=== PATIENT | male | born 1965 | race Caucasian/White ===

== ENCOUNTER 2017-07-03 10:05 | Emergency (ER) | payer OTHER ==
[~2017-07-03] VITALS: Ht 177.8 cm; Wt 86.2 kg
--- NOTE | 2017-07-03 10:22 | ED AMS/SEIZURE/WEAK/DIZZY ---
History of Present Illness General Chief Complaint: Dizziness Stated Complaint: VERTIGO Source: patient Exam Limitations: no limitations Vital Signs & Intake/Output Vital Signs & Intake/Output Vital Signs Date Time Temp Pulse Resp B/P B/P Pulse O2 O2 Flow FiO2 Mean Ox Delivery Rate 07/03 1240 97.2 61 18 137/90 99 Room Air 07/03 1010 97.6 69 18 159/100 97 Room Air Allergies Uncoded Allergies: SILK TAPE (10/09/10) Reconcile Medications Meclizine HCl 25 MG TABLET 1 TAB PO TIDPRN vertigo Metoclopramide HCl (Reglan) 10 MG TABLET 1 TAB PO 4 TIMES/DAY PRN NAUSEA Pentosan Polysulfate Sodium (Elmiron) 100 MG CAPSULE 1 CAP PO BID UNKNOWN ( Reported) Scopolamine (Transderm-Scop) 1 MG/3 DAY PATCH.TD.3 1 PAT EXT AD PRN VERTIGO APPLY FOR THREE DAYS BEHIND THE BACK OF THE EAR Triage Note: PT BIBA FROM URGENT CARE. PT C/O FEELING DIZZY AT ABOUT 0800 THIS AM. PT HAD THUMB SURGERY LEFT HAND AND WAS TAKING MORPHINE FOR THE PAIN. PT STATES HE WAS ABLE TO DRIVE HIMSELF TO WORK BUT THEN NEEDED SOMEONE TO DRIVE HIM TO WALK IN. PT DID VOMITED WHILE AT THE OFFICE. Triage Nurses Notes Reviewed? yes Onset: Abrupt Duration: constant Timing: single episode today Severity: severe Severity Numbers: 7 HPI: Patient is a 52-year-old male who presents emergency room with concerns of acute onset of dizziness with associated symptoms of blurred vision nausea was brought in by ambulance patient had no relief of nausea with Zofran by press washer. Patient does state that approximately 2 weeks ago he had a similar event as today in which she states that he was status post 2 days of general anesthesia due to a wrist surgical intervention in which she states that the symptoms lasted approximately 24 hours Patient today woke up and his normal state of health any breakfast denies any illicit drug use Denies any fever chills headache chest pain or pain jaw pain abdominal pain back pain shortness breath cough leg swelling slurred speech facial droop denies any ear pain Past History Travel History Traveled to [place] past 21 day No Medical History Any Pertinent Medical History? see below for history Renal: INTERCICIAL CYCSTITIS Influenza Vaccine: 03/12/10 Tetanus Vaccine: Surgical History Surgical History: non-contributory Psychosocial History Who do you live with Family Services at Home None What is your primary language Upper Sorbian Tobacco Use: Never used ETOH Use: denies use, occasional use Family History Hx Contributory? No Review of Systems Review of Systems Constitutional: Reports: no symptoms. EENTM: Reports: see HPI. Respiratory: Reports: no symptoms. Cardiovascular: Reports: no symptoms. GI: Reports: see HPI. Genitourinary: Reports: no symptoms. Musculoskeletal: Reports: no symptoms. Skin: Reports: no symptoms. Neurological/Psychological: Reports: no symptoms. Hematologic/Endocrine: Reports: see HPI. Immunologic/Allergic: Reports: no symptoms. All Other Systems: Reviewed and Negative Physical Exam Physical Exam General Appearance: mild distress Head: atraumatic Eyes: Bilateral: normal appearance, PERRL, EOMI (NOTED HORIZONTAL NYSTAGMUS). 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 No CVA/TIA Diagnosis No Sepsis Present: No Sepsis Focused Exam Completed? No Progress Differential Diagnosis: arrythmia, anemia, benign positional vertigo, CVA/stroke , dehydration, drug intoxication, encephalitis, electrolyte imbalance, GI bleed, hypoglycemia, hypoxia, intracranial Hem., intracranial mass/tumor, labrynthitis, meningitis, Meniere's disease, migraine HALE, multiple sclerosis, postural hypotension, presyncope, sepsis, seizure disorder, subarachnoid Hem., UTI/pyelo, vertebrobasilar insuff Plan of Care: Orders Procedure Date/time Status TROPONIN LEVEL 07/03 1042 Complete COMPREHENSIVE METABOLIC PANEL 07/03 1042 Complete CBC WITHOUT DIFFERENTIAL 07/03 1042 Complete EKG 07/03 1012 Active Laboratory Tests 07/03/17 1115: Anion Gap 15, Estimated GFR > 60, BUN/Creatinine Ratio 23.8, Glucose 120 H, Calcium 9.7, Total Bilirubin 0.5, AST 37, ALT 67, Alkaline Phosphatase 65, Troponin I < 0.01, Total Protein 7.4, Albumin 4.7, Globulin 2.7, Albumin/ Globulin Ratio 1.7, CBC w Diff NO MAN DIFF REQ, RBC 4.95, MCV 88.5, MCH 29.7, RDW 12.4, MPV 9.4, Gran % 88.6 H, Lymphocytes % 6.9 L, Monocytes % 4.1, Eosinophils % 0.3, Basophils % 0.1, Absolute Granulocytes 10.9 H, Absolute Lymphocytes 0.8 L, Absolute Monocytes 0.5, Absolute Eosinophils 0, Absolute Basophils 0, PUBS MCHC 33.6 On initial examination patient has concerns of peripheral vertigo, 1156 patient was reevaluated and has significant improvement of HIS dizziness and nausea\ 1300- BLOOD WORK WAS UNREMARKABLE AND REVIEWED WITH PT NORMAL STEADY GAIT, Initial ED EKG: normal p-waves, normal QRS complex, NSR 67 BPM Departure Departure Disposition: HOME OR SELF CARE Condition: Stable Clinical Impression Primary Impression: Vertigo Referrals: Gómez MANCILLA,Selin Bella MD,[place] (PCP/Family) Additional Instructions: As discussed begin the prescription of meclizine, scopolamine for your dizziness symptoms, begin the prescription Reglan for nausea, prescriptions waiting at [facility], if no better on Thursday follow-up with ENT Dr. Magaña for further evaluation treatment symptoms worsen return to the emergency room Departure Forms: Customer Survey General Discharge Information Prescriptions: Current Visit Scripts Meclizine HCl 1 TAB PO TIDPRN #30 TAB Scopolamine (Transderm-Scop) 1 PAT EXT AD PRN VERTIGO #9 PAT APPLY FOR THREE DAYS BEHIND THE BACK OF THE EAR Metoclopramide HCl (Reglan) 1 TAB PO 4 TIMES/DAY PRN NAUSEA #15 TAB
[2017-07-03] MEDS ORDERED: ELMIRON100 M1 PO (10:47)
[2017-07-03 11:25] LABS: ABSOLUTE BASOPHIL COUNT 0 /CUMM (0.0-0.2); ABSOLUTE EOSINOPHIL COUNT 0 /CUMM (0.0-0.7); ABSOLUTE GRANULOCYTE CT 10.9 /CUMM (1.4-6.5); ABSOLUTE LYMPH COUNT 0.8 /CUMM (1.2-3.4); ABSOLUTE MONOCYTE COUNT 0.5 /CUMM (0.10-0.60); BASOPHIL % 0.1 % (0.0-2.0); EOSINOPHIL % 0.3 % (0-5); HEMATOCRIT 43.8 % (42-52); MEAN CORPUSCULAR HGB 29.7 PG (27.0-31.0); MEAN CORPUSCULAR HGB CONC 33.6 G/DL (33.0-37.0); MEAN CORPUSCULAR VOLUME 88.5 FL (80.0-94.0); MEAN PLATELET VOLUME 9.4 FL (7.4-10.4); PLATELET COUNT 216 /CUMM (130-400); RBC DISTRIBUTION WIDTH 12.4 % (11.5-14.5); RED BLOOD CELL CT 4.95 /CUMM (4.70-6.10); WHITE BLOOD CELL COUNT 12.3 /CUMM (4.8-10.8)
[2017-07-03 11:51] LABS: GRANULOCYTE % 88.6 % (42.2-75.2)
[2017-07-03] MEDS ORDERED: REGLAN10 M1 PO (12:58)
[2017-07-03] MEDS ORDERED: TRANSDERM-SCOP1 EAC1 EXT (12:58)
[2017-07-03] MEDS ORDERED: MECLIZINE HCL25 MG PO (12:58)
[2017-07-03 13:24] VITALS: BP 136/87
== END 2017-07-03 13:55 ==
LOC: ERH 10:05
PROVIDERS: Physician Assistant
DX: R42 Dizziness and giddiness (principal)
CPT/HCPCS: 93005; 93010; 96374; J2765